=== PATIENT | male | born 1940 | race Caucasian/White ===

== ENCOUNTER → 2017-04-16 | Day surgery (SDC) | payer OTHER ==
[2017-03-20 11:50] VITALS: Ht 182.9 cm; Wt 72.7 kg
[~2017-04-16] VITALS: Ht 182.9 cm; Wt 72.7 kg
[~2017-04-16] MED LIST: 500ML BSS 0.3ML EPI 1:1000PF IRRIG ONE; ACET-1311 PO; ACETAMINOPHEN 325 MG TAB PO PRN; AMVISC PLUS 0.8ML SYRINGE INT OCU ONE; ASPI81TA25 PO; ATROPINE SULFATE 0.1 MG/ML 5ML SYR IV PRN; BRIMONIDINE TART 0.2% OP SOLN PER DROP CHARGE ONE; BSS FLUSH ONE; CLXOPS3; ENDOCOAT 0.85ML SYRINGE INT OCU ONE; EpHEDrine SULFATE INJ 50 MG/ML AMP IV PRN; EpINEphrine INJ 1MG/ML AMP 1 MG/ML AMP ONE; FLV400 PO; KETO0.5S22 OPL; LACTATED RINGER'S 1000ML 500 ML IV SCH; LECI1CAP6 PO; LECITHIN PO; LIDOCAINE 4% OP SOLN DROP CHARGE ONE; LIDOCAINE 4% OP SOLN DROP CHARGE OPR SCH; LIDOCAINE HCL 1% MPF 2 ML VIAL ONE; MAGN400T6 PO; MIDAZOLAM HCL 1 MG/ML 2ML VIAL ONE; MOXIFLOXACIN OPH SOLN PER DROP CHARGE ONE; MULT-188 PO; OMEG10007 PO; POVIDONE-IODINE OP SOLN 30 ML BTL ONE; PRED1SUS3 OPL; PROPARACAINE 0.5% OP SOLN PER DROP CHARGE OPR SCH; PRVC20 PO; TOBRAMYCIN/DEXAMETHASONE OPH OINT PER APPLN CHARGE ONE; ciprofloxacin
--- NOTE | 2017-04-16 10:06 | History & Physical Bridge - [place] ---
H&P Re-Evaluation Bridge Note: I have examined the patient, reviewed the History & Physical and in the interval since the performance of the History & Physical I have noted the following changes of clinical significance: No changes noted
[2017-04-16] MEDS: PHENYLEPHRINE HCL 2.5% OP SOLN PER DROP CHARGE OPR SCH ×2 (10:17→10:24)
[2017-04-16] MEDS: TROPICAMIDE 1% OP SOLN PER DROP CHARGE OPR SCH ×2 (10:18→10:25)
[2017-04-16] MEDS: CYCLOPENTOLATE HCL 1% OP SOLN PER DROP CHARGE OPR SCH ×2 (10:19→10:26)
[2017-04-16] MEDS: KETOROLAC 0.5% OP SOLN PER DROP CHARGE OPR SCH ×2 (10:21→10:27)
[2017-04-16] MEDS: MOXIFLOXACIN OPH SOLN PER DROP CHARGE OPR SCH ×2 (10:22→10:28)
[2017-04-16 11:19] VITALS: TEMP 36.4
--- NOTE | 2017-04-16 11:19 | Discharge Instructions-SurgCtr ---
Discharge Instructions Date of Service Apr 16, 2017. Visit Reason for Visit: Cataract Right Eye Discharge Discharge Diagnosis / Problem: cataract right eye Discharge Goals Goal(s): Improve function Activity Recommendations Activity Limitations: per Instructions/Follow-up section Lifting Limitations: no more than 5 pounds Anesthesia . Post Anesthesia Instructions: If you have had General Anesthesia or IV Sedation: * Do not drive today. * Resume driving when surgeon permits. * Do not make important decisions or sign legal documents today. * Call surgeon for: 1. Temperature elevations greater than 101 degrees F. 2. Uncontrollable pain. 3. Excessive bleeding. 4. Persistent nausea and vomiting. 5. Medication intolerance (nausea, vomiting or rash). * For nausea and vomiting use only clear liquids such as: tea, soda, bouillon until nausea subsides, then gradually increase diet as tolerated. * If you have any concerns or questions, call your surgeon's office. If physician is unavailable and it is an emergency, call 911 or go to the nearest emergency room. . Instructions / Follow-Up Instructions / Follow-Up ACTIVITY RECOMMENDATIONS: * Light activities * You may walk outside, read, watch television. * Mild irritation and blurred vision are common for the first few days, redness around the white part of the eye is common. MEDICATIONS: Resume previous medications unless instructed otherwise by your surgeon. Eye drops (today and tomorrow): Cipro - one drop in operative eye every 2 hours while awake Prednisolone 1% - one drop in operative eye every 2 hours while awake Bromfenac - one drop in operative eye once daily SPECIAL CARE INSTRUCTIONS: * If any problems or concerns, please call Dr. Hill's office at . * Keep plastic shield taped over eye to sleep at night. * Keep plastic shield taped over eye except to administer eye drops. * Keep plastic shield on until office visit the following day. FOLLOW UP VISIT: Follow-up with Dr. Hill in the [place] office as scheduled. If not already scheduled, please call the office at . Diet Recommendations Home Diet: resume previous diet Procedures Procedures Performed: Right Cataract Phacoemulsification With Intraocular Lens Implant Pending Studies Studies pending at discharge: no Medical Emergencies . Who to Call and When: Medical Emergencies: If at any time you feel your situation is an emergency, please call 911 immediately. . Non-Emergent Contact Non-Emergency issues call your: Rougher Machine Operator . . "Provider Documentation" section prepared by Corey Hill. .
--- NOTE | 2017-04-16 11:21 | [facility] Operative Report ---
Operative Report Operative Date Apr 16, 2017. Pre-Operative Diagnosis Right Eye Cataract Post-Operative Diagnosis Same Procedure(s) Performed Right Cataract Phacoemulsification With Intraocular Lens Implant Surgeon Dr Hill Supervisor Brine Surgeon(s) None Estimated Blood Loss 0ml Findings cataract right eye Fluids (cc crystalloids) see anesthesia record Specimens None Drains none Anesthesia local with sedation Complication(s) None Disposition Recovery Room / PACU Implants mx60 22.5 Indications decreased vision right eye Description of Procedure After informed consent was obtained in the holding area the patient was wheeled back to the operating room where cardiac monitoring leads and oxygen by nasal cannula was administered by Anesthesia. Gentle IV sedation was given, and the patient's right eye was prepped and draped in usual sterile fashion. A wire lid speculum was placed into the right eye and the operating microscope was swung into position. Using 0.12 forceps and a Supersharp blade a paracentesis port was made 2 o'clock hours away from the 9 o'clock position of the patient's right eye. 1% non-preserved Lidocaine was then injected into the anterior chamber for anesthesia. A 2.0 mm keratotome blade was then used to make a shelved clear corneal incision at the 9 o'clock position of the right eye. Amvisc was injected into the anterior chamber and a cystotome and Utrata forceps were used to perform a curvilinear capsulorrhexis. BSS on a hydrodissection cannula was used to hydrodissect the lens nucleus away from the capsular bag. The phacoemulsification handpiece was then used in a stop and chop fashion to remove the lens nucleus. The irrigation and aspiration handpiece was then used to remove the residual cortical material. Amvisc was injected into the capsular bag and anterior chamber and a Bausch & Lomb MX60 22.5 Diopter intraocular lens was injected into the capsular bag. Irrigation and aspiration handpiece was used to remove the residual viscoelastic material. The wounds were hydrated and noted to be watertight. The wire lid speculum was removed from the eye. Vigamox, Brimonidine, and TobraDex ointment were placed on the eye and it was shielded. It should be noted that EndoCoat was used extensively during the case to protect the cornea endothelium. DISPOSITION: The patient tolerated the procedure well and was wheeled to the post anesthesia care unit in stable condition. I attest to the content of the Intraoperative Record and any orders documented therein. Any exceptions are noted below. I attest to the content of the Intraoperative Record and any orders documented therein. Any exceptions are noted below.
[2017-04-16 11:32] VITALS: BP 132/73; PULSE 66; O2SAT 95
--- NOTE | 2017-04-16 11:52 | Anesthesia Progress Nt - [facility] ---
Anesthesia Post Op Note Date & Time Apr 16, 2017 at 11:52 Vital Signs Pain Intensity: 0 Vital Signs Past 12 Hours Date Time Temp Pulse Resp B/P (MAP) Pulse Ox O2 Delivery O2 Flow Rate FiO2 04/16/17 11:32 66 20 132/73 (92) 95 Room Air 04/16/17 11:19 36.4 78 16 139/75 (96) 96 Room Air 04/16/17 10:06 36.4 64 16 126/74 (91) 99 Room Air Notes Mental Status: alert / awake / arousable, participated in evaluation Pt Amnestic to Procedure: Yes Nausea / Vomiting: adequately controlled Pain: adequately controlled Airway Patency, RR, SpO2: stable & adequate BP & HR: stable & adequate Hydration State: stable & adequate Anesthetic Complications: no major complications apparent
== END | disposition home or self-care (01) ==
LOC: X.SURG 09:42
PROVIDERS: ATTEND Ophthalmology
DX: H25.11 Age-related nuclear cataract, right eye (principal)

== ENCOUNTER → 2017-04-30 | Day surgery (SDC) | payer OTHER ==
[2017-04-25 07:43] VITALS: Ht 182.9 cm; Wt 72.7 kg
[~2017-04-30] VITALS: Ht 182.9 cm; Wt 72.7 kg
[~2017-04-30] MED LIST changes: -LECITHIN PO; +LIDOCAINE 4% OP SOLN DROP CHARGE OPL SCH; -LIDOCAINE 4% OP SOLN DROP CHARGE OPR SCH; +PROPARACAINE 0.5% OP SOLN PER DROP CHARGE OPL SCH; -PROPARACAINE 0.5% OP SOLN PER DROP CHARGE OPR SCH; -ciprofloxacin
[2017-04-30] MEDS: PHENYLEPHRINE HCL 2.5% OP SOLN PER DROP CHARGE OPL SCH ×2 (08:38→08:43)
[2017-04-30] MEDS: TROPICAMIDE 1% OP SOLN PER DROP CHARGE OPL SCH ×2 (08:39→08:44)
[2017-04-30] MEDS: CYCLOPENTOLATE HCL 1% OP SOLN PER DROP CHARGE OPL SCH ×2 (08:40→08:45)
[2017-04-30] MEDS: KETOROLAC 0.5% OP SOLN PER DROP CHARGE OPL SCH ×2 (08:41→08:46)
[2017-04-30] MEDS: MOXIFLOXACIN OPH SOLN PER DROP CHARGE OPL SCH ×2 (08:42→08:52)
[2017-04-30 10:10] VITALS: TEMP 36
--- NOTE | 2017-04-30 10:10 | Discharge Instructions-SurgCtr ---
Discharge Instructions Date of Service Apr 30, 2017. Visit Reason for Visit: Cataract Left Eye Discharge Discharge Diagnosis / Problem: cataract left eye Discharge Goals Goal(s): Improve function Activity Recommendations Activity Limitations: per Instructions/Follow-up section Lifting Limitations: no more than 5 pounds Anesthesia . Post Anesthesia Instructions: If you have had General Anesthesia or IV Sedation: * Do not drive today. * Resume driving when surgeon permits. * Do not make important decisions or sign legal documents today. * Call surgeon for: 1. Temperature elevations greater than 101 degrees F. 2. Uncontrollable pain. 3. Excessive bleeding. 4. Persistent nausea and vomiting. 5. Medication intolerance (nausea, vomiting or rash). * For nausea and vomiting use only clear liquids such as: tea, soda, bouillon until nausea subsides, then gradually increase diet as tolerated. * If you have any concerns or questions, call your surgeon's office. If physician is unavailable and it is an emergency, call 911 or go to the nearest emergency room. . Instructions / Follow-Up Instructions / Follow-Up ACTIVITY RECOMMENDATIONS: * Light activities * You may walk outside, read, watch television. * Mild irritation and blurred vision are common for the first few days, redness around the white part of the eye is common. MEDICATIONS: Resume previous medications unless instructed otherwise by your surgeon. Eye drops (today and tomorrow): Cipro - one drop in operative eye every 2 hours while awake Prednisolone 1% - one drop in operative eye every 2 hours while awake Ketorolac - one drop in operative eye every 2 hours while awake SPECIAL CARE INSTRUCTIONS: * If any problems or concerns, please call Dr. Hill's office at . * Keep plastic shield taped over eye to sleep at night. * Keep plastic shield taped over eye except to administer eye drops. * Keep plastic shield on until office visit the following day. FOLLOW UP VISIT: Follow-up with Dr. Hill in the [place] office as scheduled. If not already scheduled, please call the office at . Diet Recommendations Home Diet: resume previous diet Procedures Procedures Performed: Left Cataract Phacoemulsification With Intraocular Lens Implant Pending Studies Studies pending at discharge: no Medical Emergencies . Who to Call and When: Medical Emergencies: If at any time you feel your situation is an emergency, please call 911 immediately. . Non-Emergent Contact Non-Emergency issues call your: Nnp . . "Provider Documentation" section prepared by Corey Hill. .
--- NOTE | 2017-04-30 10:12 | [facility] Operative Report ---
Operative Report Operative Date Apr 30, 2017. Pre-Operative Diagnosis Left Eye Cataract Post-Operative Diagnosis Same Procedure(s) Performed Left Cataract Phacoemulsification With Intraocular Lens Implant Surgeon Dr. Meng Hill Puncher Surgeon(s) None Estimated Blood Loss 0 Findings cataract left eye Fluids (cc crystalloids) see anesthesia record Specimens None Drains none Anesthesia local with sedation Complication(s) None Disposition Recovery Room / PACU Implants mx60 22.5 Indications decreased vision left eye Description of Procedure After informed consent was obtained in the holding area the patient was wheeled back to the operating room where cardiac monitoring leads and oxygen by nasal cannula was administered by Anesthesia. Gentle IV sedation was given, and the patient's left eye was prepped and draped in usual sterile fashion. A wire lid speculum was placed into the left eye and the operating microscope was swung into position. Using 0.12 forceps and a Supersharp blade a paracentesis port was made 2 o'clock hours away from the 3 o'clock position of the patient's left eye. 1% non-preserved Lidocaine was then injected into the anterior chamber for anesthesia. A 2.0 mm keratotome blade was then used to make a shelved clear corneal incision at the 3 o'clock position of the left eye. Amvisc was injected into the anterior chamber and a cystotome and Utrata forceps were used to perform a curvilinear capsulorrhexis. BSS on a hydrodissection cannula was used to hydrodissect the lens nucleus away from the capsular bag. The phacoemulsification handpiece was then used in a stop and chop fashion to remove the lens nucleus. The irrigation and aspiration handpiece was then used to remove the residual cortical material. Amvisc was injected into the capsular bag and anterior chamber and a Bausch & Lomb MX60 22.5 Diopter intraocular lens was injected into the capsular bag. Irrigation and aspiration handpiece was used to remove the residual viscoelastic material. The wounds were hydrated and noted to be watertight. The wire lid speculum was removed from the eye. Vigamox, Brimonidine, and TobraDex ointment were placed on the eye and it was shielded. It should be noted that EndoCoat was used extensively during the case to protect the cornea endothelium. DISPOSITION: The patient tolerated the procedure well and was wheeled to the post anesthesia care unit in stable condition. I attest to the content of the Intraoperative Record and any orders documented therein. Any exceptions are noted below. I attest to the content of the Intraoperative Record and any orders documented therein. Any exceptions are noted below.
[2017-04-30 10:34] VITALS: BP 122/73; PULSE 59; O2SAT 97
--- NOTE | 2017-04-30 10:39 | Anesthesia Progress Nt - [facility] ---
Anesthesia Post Op Note Date & Time Apr 30, 2017 at 10:39 Vital Signs Pain Intensity: 0 Vital Signs Past 12 Hours Date Time Temp Pulse Resp B/P (MAP) Pulse Ox O2 Delivery O2 Flow Rate FiO2 04/30/17 10:34 59 16 122/73 (89) 97 Room Air 04/30/17 10:10 36.0 61 16 145/90 (108) 100 Room Air 04/30/17 08:30 36.9 55 16 103/63 (76) 97 Room Air Notes Mental Status: alert / awake / arousable, participated in evaluation Pt Amnestic to Procedure: Yes Nausea / Vomiting: adequately controlled Pain: adequately controlled Airway Patency, RR, SpO2: stable & adequate BP & HR: stable & adequate Hydration State: stable & adequate Anesthetic Complications: no major complications apparent
== END | disposition home or self-care (01) ==
LOC: X.SURG 08:13
PROVIDERS: ATTEND Ophthalmology
DX: H25.12 Age-related nuclear cataract, left eye (principal); H35.3130 Nonexudative age-related macular degeneration, bilateral, stage unspecified; I25.10 Atherosclerotic heart disease of native coronary artery without angina pectoris; Z85.828 Personal history of other malignant neoplasm of skin; Z98.61 Coronary angioplasty status

== ENCOUNTER 2022-08-02 20:14 | Inpatient (IN) ==
[2022-08-02] MEDS ORDERED: ASPIRIN CHEW 324 MG PO STA (20:34)
--- NOTE | 2022-08-02 20:34 | Emergency Department Note ---
Impression & Plan Unstable angina, Chest pain ED Provider Note NAME: MARY BENITEZ AGE: 82 SEX: M : 1940 ARRIVES VIA: Walk-In INFORMANT: Patient, ED PROVIDER(S): Denis Dwyer MD Chief Complaint: Chest pain HPI: Patient presents due to concern for chest pain that developed at rest approximately 1 to 2 hours ago. The patient is scheduled for a heart catheterization with Dr. Basurto tomorrow but did come in at the behest of Dr. Villalpando as well as the impending weather. Patient denies any active chest pain. He did take 2 nitro at the time that this occurred and stated it was left-sided did radiate to his arm an achy pressure about a 3 out of 10 in severity. No falls or trauma. The patient denies any numbness tingling or focal weakness. No leg swelling or calf pain. Patient denies any alcohol or tobacco use. No upper respiratory symptoms cough or fever. ROS: See HPI for pertinent positives and negatives. A total of 10 systems were reviewed and otherwise negative. Past medical history: See below Surgical history: See below Social history: See below Physical Exam: GENERAL: NAD, wearing a mask, non-toxic. Wearing glasses, hearing aids in place EYE EXAM: Normal conjunctiva. PERRL, no anisocoria and EOM's grossly intact w/o pain. NECK: Supple, no nuchal rigidity, no adenopathy, non-tender. No signs of meningismus. FROM of the neck with good chin to chest and neck extension. No stridor. LUNGS: Clear to auscultation. Normal chest wall mechanics. HEART: NSR, no MRG. ABDOMEN: Abdomen soft, non-tender, normo-active bowel sounds, no masses, no rebound or guarding. BACK: No CVA TTP. SKIN: No rashes and no bruising. UPPER EXTREMITIES: Upper extremities are grossly normal. LOWER EXTREMITIES: Grossly normal, no edema. Negative Homans' sign bilaterally. NEURO EXAM: A&O x3, cranial nerves II-XII grossly intact, normal speech, moves all 4 extremities. Differential diagnoses: Cardiac ischemia, aortic dissection, pulmonary embolism, pneumothorax, pneumonia, pericarditis, myocarditis, esophageal rupture, GERD, cholecystitis, pancreatitis, musculoskeletal, as well as other pathologies. Course: Patient was seen and evaluated the bedside. Full history physical exam was performed. EKG interpreted by me Sinus with sinus arrhythmia, rate of 71, wide QRS, right bundle branch block pattern, no ST elevations. Potentially slight depressions in the lateral leads. No prior EKGs for comparison Imaging Studies: See Below Cardiac monitoring: An order was placed for continuous cardiac monitoring. The monitor shows a rate of 79 with sinus rhythm. MDM: Patient presents due to concern for chest pain. No active chest pain at the bedside. EKG does not show any obvious ST elevations. Potentially very mild depressions in the lateral leads. Patient was ordered the rest of 3 additional aspirin as the patient did take a baby aspirin earlier today. Blood work pending and heparin to be ordered once coags and platelet oxygen and CBC results. I did already speak with Dr. Basurto who states that he did send the patient in to be admitted. He is agreeable to heparin provided no other contraindications. History and physical exam not consistent with aneurysm or dissection. No signs of DVT on exam. Believe PE to be less likely. The patient's blood work showed a normal white count H&H and platelet count with normal kidney function. The patient's BSG slightly elevated at 131 non-DKA and this is not a fasting glucose. Troponin is not elevated at 7.8. COVID- negative. Chest x-ray negative I did speak the on-call hospitalist Dr. Torres and the patient was admitted to the medicine service for unstable angina. Patient has had no further chest pain while in the department. It was relayed to the patient that if he does develop any chest pain to notify staff. Patient understood. Do not believe the patient requires [employer] at this time as the patient has no active chest pain negative troponin and no ST elevations. Critical Care: I have personally spent 35 minutes of critical care time in direct management of this patient. This includes bedside care, interpretation of diagnostic studies, and testing, discussion with consultants, patient, and family members, and other require inpatient management activities. This 35 minutes is in excess of all separately billable procedures. Past Med/Surg History Social History Smoking Status: Never smoker Hx Alcohol Use: No Hx Substance Use: No Preferred Language: Arabic Communication Ability: Effective Safety Advisor Required: No Beliefs That Will Affect Care: None Current Living Situation: Spouse Other Information That Helps Us Care for You: No Feels Safe at Home: Yes Safety Concerns: Feels Safe At This Time Assistive Devices: Glasses and Hearing Aid - Bilateral Allergies Allergies Allergy/AdvReac Type Severity Reaction Status Date / Time No Known Allergies Allergy Verified 08/02/22 20:47 Home Meds Home Medications Medication Instructions Recorded Confirmed L.acidoph-L.rhamn-B.bifidum-B.long 1 tab PO TIDM 08/02/22 08/02/22 12.9 mg (2 billion cell) tablet, DR (Probiotic Acidophilus Biobeads) aspirin 81 mg tablet,delayed 81 mg PO DAILY 08/02/22 08/02/22 release cholecalciferol (vitamin D3) 125 250 mcg PO DAILY 08/02/22 08/02/22 mcg (5,000 unit) tablet (Vitamin D3) finasteride 5 mg tablet 5 mg PO QAM 08/02/22 08/02/22 folic acid 400 mcg tablet 0.4 mg PO DAILY 08/02/22 08/02/22 lecithin 1,200 mg capsule 1,200 mg PO DAILY 08/02/22 08/02/22 magnesium oxide 400 mg PO DAILY 08/02/22 08/02/22 nitroglycerin 0.4 mg sublingual 0.4 mg sublingual DIRECTED PRN 08/02/22 08/02/22 tablet (Nitrostat) Chest Pain omega 9-wso-zke-fish oil 1,200 mg 1 cap PO DAILY 08/02/22 08/02/22 (144 mg-216 mg) capsule (Fish Oil) pravastatin 20 mg tablet 20 mg PO HS 08/02/22 08/02/22 tamsulosin 0.4 mg capsule 0.4 mg PO HS 08/02/22 08/02/22 vit C 250 mg-vit E 90 mg-zinc 40 1 tab PO DAILY 08/02/22 08/02/22 mg-copper 1 wk-hgrpvr-lwfwgo capsule (PreserVision AREDS-2) Results & Data (ED) Vital Signs Vital Signs - 24 hr 08/02/22 20:16 08/02/22 20:15 08/02/22 20:15 Temperature 36.8 C Temperature Source Temporal Artery Scan Pulse Rate 100 H Pulse Rate [Apical] 78 Pulse Rhythm Regular Pulse Strength Normal Respiratory Rate 18 18 Respiratory Effort / Characteristics Non-Labored Spontaneous Respiratory Depth Normal Respiratory Pattern Regular Blood Pressure 133/70 Blood Pressure [Left Arm] 152/84 H Blood Pressure Mean 91 Blood Pressure Mean [Left Arm] 106 Blood Pressure Position Sitting Pulse Oximetry 98 98 95 Oxygen Delivery Method Room Air Room Air Room Air Sepsis Recent Fever Within 48 Hours No Sepsis New/Unexplained Change in Mental Status N/A Sepsis Action Taken by Nursing No Action Required 08/02/22 20:24 08/02/22 22:15 Temperature Temperature Source Pulse Rate 73 Pulse Rate [Apical] 74 Pulse Rhythm Pulse Strength Respiratory Rate 18 14 Respiratory Effort / Characteristics Non-Labored Respiratory Depth Normal Respiratory Pattern Blood Pressure Blood Pressure [Left Arm] 122/68 Blood Pressure Mean Blood Pressure Mean [Left Arm] 86 Blood Pressure Position Pulse Oximetry 95 97 Oxygen Delivery Method Room Air Room Air Sepsis Recent Fever Within 48 Hours Sepsis New/Unexplained Change in Mental Status Sepsis Action Taken by Nursing Laboratory Data Result diagrams: 08/02/22 20:30 08/02/22 20:30 Lab Results 08/02/22 08/02/22 08/02/22 Range/Units 20:30 20:30 20:30 WBC 6.00 (4.8-10.8) K/ul RBC 5.04 (4.63-6.08) M/uL Hgb 15.3 (14.0-18.0) g/dl Hct 45.7 (40.1-51.0) % MCV 90.7 (80.0-100.0) fL MCH 30.4 (25.0-34.0) pg MCHC 33.5 (32.0-36.0) g/dL RDW Std Deviation 41.5 (36.4-46.3) fL RDW Coeff of Marilynn 12.5 (11.5-14.5) % Plt Count 197 (130-400) K/uL MPV 10.3 (9.4-12.4) fL Immature Gran % (Auto) 0.2 % Neut % (Auto) 59.7 % Lymph % (Auto) 26.8 % Bond % (Auto) 7.8 % Eos % (Auto) 4.8 % Baso % (Auto) 0.7 % Neut # (Auto) 3.58 (1.4-6.5) K/uL Lymph # (Auto) 1.61 (1.2-3.4) K/uL Bond # (Auto) 0.47 (0.24-0.82) K/uL Eos # (Auto) 0.29 (0-0.50) K/uL Baso # (Auto) 0.04 (0-0.2) K/uL Immature Gran # (Auto) 0.01 (0.00-0.02) K/uL PT 10.6 (9.0-12.0) Seconds INR 1.0 (0.9-1.1) APTT 26.3 (21.0-31.0) Seconds PTT Ratio 1.0 Sodium 139 (136-145) mmol/L Potassium 3.8 (3.5-5.1) mmol/L Chloride 102 (98-107) mmol/L Carbon Dioxide 34 H (21-32) mmol/L Anion Gap 3 (3-11) BUN 18 (6-23) mg/dl Creatinine 1.11 (0.6-1.4) mg/dl Est Cr Clr Drug Dosing 53.1 ml/min Est GFR ( Amer) 70.8 ml/min Est GFR (Non-Af Amer) 61.1 ml/min BUN/Creatinine Ratio 16.2 (10-20) Glucose 131 H (70-99(Fasting)) mg/dl Calcium 9.2 (8.5-10.1) mg/dl Total Bilirubin 0.6 (0.2-1.0) mg/dl AST 21 (13-39) U/L ALT 18 (7-52) U/L Alkaline Phosphatase 95 (34-104) U/L Troponin I High Sens 7.8 (0-20) pg/ml Total Protein 6.9 (6.0-8.3) gm/dl Albumin 4.2 (3.4-5.0) gm/dl Globulin 2.7 (2.5-4.0) gm/dl Albumin/Globulin Ratio 1.6 (0.9-2) Lipase 32 (11-82) U/L Administered Medications Heparin Sodium/Dextrose (Heparin Sodium/Dextrose) 25,000 units in 500 mls @ 18 mls/hr IV .Q24H [facility]; Protocol Stop: 09/01/22 21:29 Last Admin: 08/02/22 23:03 Dose: 900 units/hr, 18 mls/hr Documented By: RAYMOND Co-signed By: TRISH Discontinued Medications Aspirin (Aspirin Chew 324 Mg) 243 mg PO NOW STA Stop: 08/02/22 20:35 Last Admin: 08/02/22 20:55 Dose: 243 mg Documented By: TNB Heparin Sodium/Dextrose (Heparin Iv Adult Wt-Based Low-Dose *No* Bolus Protocol) 1 each IV ONE ONE; Protocol Stop: 08/02/22 21:22 Last Admin: 08/02/22 23:04 Dose: Not Given Documented By: TNB Imaging Data Radiologist's Impression: Chest X-Ray 08/02/22 20:24 XR chest 1V portable HISTORY: Atypical chest pain. COMPARISON: None. FINDINGS: The lungs are clear. Cardiac silhouette is normal in size. No pleural effusions. No pneumothorax. IMPRESSION: No acute process. ACT 112: Negative or not required by law. Electronically signed by: Norman Floyd M.D. 08/02/2022 9:02 PM Discharge Plan Visit Data Chief Complaint: Chest Pain Stated Complaint: CATHERIZATION TOMORROW,CHEST PAIN,TOOK NITRO ED Provider: Denis Dwyer Discharge Problem: Unstable angina, Chest pain Patient Disposition: Admitted As Inpatient Discharge Instructions Interventions: ED Discharge Assessment Last Done: 08/02/22 23:35
[2022-08-02 20:47] LABS: Basophils # (auto) 0.04 K/uL (0-0.2); Basophils % (auto) 0.7 %; Eosinophils # (auto) 0.29 K/uL (0-0.50); Eosinophils % (auto) 4.8 %; Hematocrit (blood only) 45.7 % (40.1-51.0); Hemoglobin 15.3 g/dl (14.0-18.0); Immature Granulocytes # (auto) 0.01 K/uL (0.00-0.02); Immature Granulocytes % (auto) 0.2 %; Lymphocytes # (auto) 1.61 K/uL (1.2-3.4); Lymphocytes % (auto) 26.8 %; Mean Corpuscular Hemoglobin 30.4 pg (25.0-34.0); Mean Corpuscular Hgb Conc 33.5 g/dL (32.0-36.0); Mean Corpuscular Volume 90.7 fL (80.0-100.0); Mean Platelet Volume 10.3 fL (9.4-12.4); Monocytes # (auto) 0.47 K/uL (0.24-0.82); Monocytes % (auto) 7.8 %; Neutrophils # (auto) 3.58 K/uL (1.4-6.5); Neutrophils % (auto) 59.7 %; Platelet Count 197 K/uL (130-400); RDW Coefficient of Variation 12.5 % (11.5-14.5); RDW Standard Deviation 41.5 fL (36.4-46.3); Red Blood Count 5.04 M/uL (4.63-6.08)
--- NOTE | 2022-08-02 21:03 | XRay Report ---
XR chest 1V portable HISTORY: Atypical chest pain. COMPARISON: None. FINDINGS: The lungs are clear. Cardiac silhouette is normal in size. No pleural effusions. No pneumot horax. IMPRESSION: No acute process. ACT 112: Negative or not required by law. Electronically signed by: Norman Floyd M.D. 08/02/2022 9:02 PM
[2022-08-02 21:14] LABS: Partial Thromboplastin Time 26.3 Seconds (21.0-31.0); Prothrombin Time 10.6 Seconds (9.0-12.0)
[2022-08-02 21:17] LABS: Albumin Globulin Ratio 1.6 (0.9-2); Albumin Level 4.2 gm/dl (3.4-5.0); BUN Creatinine Ratio 16.2 (10-20); Bilirubin,Total 0.6 mg/dl (0.2-1.0); Calcium 9.2 mg/dl (8.5-10.1); Creatinine Clr Calc Pharmacy 53.1 ml/min; Est GFR (African American) 70.8 ml/min; Est GFR (Non-African American) 61.1 ml/min; Globulin 2.7 gm/dl (2.5-4.0); Potassium 3.8 mmol/L (3.5-5.1); Total Protein 6.9 gm/dl (6.0-8.3)
[2022-08-02 21:18] LABS: Troponin I High Sensitivity 7.8 pg/ml (0-20)
[2022-08-02] MEDS ORDERED: Heparin IV Adult Wt-Based Low-Dose *NO* Bolus Protocol IV ONE (21:21)
[2022-08-02] MEDS ORDERED: HEPARIN SODIUM/DEXTROSE 25,000 UNITS/500 ML BAG IV SCH (21:30)
[2022-08-02] MEDS ORDERED: NITROGLYCERIN SL 0.4 MG/TAB TAB SL PRN (23:55)
[2022-08-02] MEDS ORDERED: ACETAMINOPHEN 325 MG TAB PO PRN (23:55)
--- NOTE | 2022-08-03 01:16 | History and Physical Report ---
DATE OF ADMISSION: 08/02/2022 CHIEF COMPLAINT: Chest pain. HISTORY OF PRESENT ILLNESS: This is an 82-year-old male with past medical history significant for hyperlipidemia, history of CAD, chronic kidney disease stage III, history of degenerative disc disease, hearing loss, presents with chest pain. The patient says he is having chest pain with minimal exertion going on for the past six weeks. He has stress test done on 07/26/2022, which was positive and there is plan for elective cardiac catheterization tomorrow. The patient says today, in the evening he was sitting when he noticed chest pain in upper chest , mild to moderate in nature, going to his left arm, he took nitroglycerin, which really helped the pain. For this reason he came here. Currently, resting comfortably, hemodynamically stable. He also given aspirin. Denies any headache. No blurred visions, no earache, no runny nose, no sore throat, no cough, no difficulty swallowing. Appetite is okay. No shortness of breath, no sweating, no nausea, no abdominal pain. Normal bowel and bladder movements. No hematuria, no blood in stools or black stools. No swelling in the legs. ALLERGIES: No known drug allergies. PAST MEDICAL HISTORY: As mentioned above. PAST SURGICAL HISTORY: Ultrasound-guided needle biopsy of prostate. MEDICATIONS: The patient is on aspirin 81 mg p.o. daily, vitamin D 250 mcg p.o. daily, finasteride 5 mg p.o. a.m., folic acid 0.4 mg p.o. daily, probiotic 1 tablet p.o. daily, magnesium oxide 400 mg p.o. daily, Nitrostat 0.4 mg sublingual p.r.n., fish oil 1 capsule p.o. daily, pravastatin 20 mg p.o. at bedtime, Flomax 0.4 mg p.o. at bedtime, PreserVision AREDS 1 tablet p.o. daily. FAMILY HISTORY: Significant for paternal grandfather had bone cancer, maternal grandmother had abdominal tumor. Maternal grandfather had heart disorder. Father had history of CAD, valve repair, at age of 94. Mother had CAbG in 80's and has carotid artery disease.Daughter has skin cancer. SOCIAL HISTORY: . No smoking, no alcohol, no drug use. REVIEW OF SYSTEMS: As per HPI. Rest of review of systems is negative. PHYSICAL EXAMINATION: GENERAL: The patient is of moderate build, not in acute distress. VITAL SIGNS: Temperature 36.8, pulse of 73, respiratory rate 18, blood pressure 133/70, oxygen 95% on room air. HEENT: Pupils equal, round and reactive to light. Oral mucosa moist. NECK: No JVD, no neck masses. CARDIOVASCULAR: S1 and S2 heard. Regular rate and rhythm. No murmur, no gallop. RESPIRATORY SYSTEM: Normal AP diameter. No accessory muscle use. No wheezing, no crackles. ABDOMEN: Soft, bowel sounds present, nontender, no distention. CENTRAL NERVOUS SYSTEM: Cranial nerves II-XII grossly intact, nonfocal. EXTREMITIES: No edema, no erythema. LABORATORY DATA: WBC 6, hemoglobin 15.3, hematocrit 45.7, platelets 197. PT 10.6, INR 1, APTT 26.3. Sodium 139, potassium 3.8, chloride 102, bicarbonate 34, BUN 18, creatinine 1.1, serum glucose 131, calcium 9.2, total bilirubin 0.6, AST 21, ALT 18, alkaline phosphatase 94. Troponin I high sensitivity 7.8, lipase 32. SARS-CoV-2 rapid test negative. IMAGING DATA: Chest x-ray, no acute process. EKG: Sinus rhythm with marked sinus arrhythmia at a rate of 71, right bundle- branch block, no acute ST changes seen. ASSESSMENT AND PLAN: This is an 82-year-old male who presents with chest pain. 1. Chest pain, unstable angina. The patient is having abnormal stress test recently and today he had chest pain while he was resting. Initial troponin is unremarkable. ER talked to cardiology and started him on IV heparin. Plan for cardiac catheterization in a.m., n.p.o. Continue his home aspirin. We will place him on Lipitor. Also started on Po Lopressor as BP somewhat high. Continue monitoring. 2. History of benign prostatic hyperplasia. The patient is on Flomax and finasteride. 3. Hyperlipidemia: On statin. 4. Chronic kidney disease, stage III. Current creatinine of 1.1. Follow the labs. 5. Deep venous thrombosis prophylaxis: On IV heparin. DISPOSITION: Closely monitor in tele floor. Level 1 full code. Expect to discharge home and follow with family doctor. Job ID: [id number] [facility]
[2022-08-03] MEDS ORDERED: METOPROLOL TARTRATE 1 MG/ML VIAL IV STA (03:06)
[2022-08-03] MEDS: METOPROLOL TARTRATE 25 MG TAB PO SCH ×3 (04:39→20:11)
[2022-08-03 06:29] LABS: Chol HDL Ratio 2.5 (0-5)
[2022-08-03 06:39] LABS: Partial Thromboplastin Time 56.2 Seconds (21.0-31.0)
[2022-08-03 06:40] LABS: Troponin I High Sensitivity 13.6 pg/ml (0-20)
[2022-08-03] MEDS ORDERED: MIDAZOLAM HCL 1 MG/ML 2ML VIAL ONE (07:52)
[2022-08-03] MEDS ORDERED: niCARdipine HCL INJ 2.5 MG/ML 10 ML AMP ONE (07:52)
[2022-08-03] MEDS ORDERED: fentaNYL citrate 100 MCG/2 ML VIAL ONE (07:52)
[2022-08-03] MEDS ORDERED: HEPARIN (PORCINE) 1000 UNIT/ML 10 ML (CATH LAB USE ONLY) ONE (07:52)
[2022-08-03] MEDS ORDERED: NITROGLYCERIN/D5W 100MCG/ML 20ML SYR ONE (07:52)
--- NOTE | 2022-08-03 08:12 | Cardiology Consultation ---
Date of Consultation August 03, 2022 Assessment & Plan (1) CAD (coronary artery disease): (2) Abnormal stress echocardiogram: (3) Dyslipidemia: (4) Vasovagal syncope: (5) Unstable angina: History of Present Illness Reason for Consultation: Unstable angina Requesting Physician: [place] hospitalist group Attending Physician: Ike Hernandes MD History of Present Illness Past medical history as per most recent outpatient cardiology visit: 1. Chronic CAD (history of LAD angioplasty without stenting in 1991) -intermittent chest tightness suggestive of stable angina class 2 2. Dyslipidemia goal LDL less than 70mg/dL - uncontrolled - history of intolerance to atorvastatin - tolerating pravastatin 3. Erectile dysfunction - vasculogenic 4. Vasovagal syncope - no recurrence 5. Asymptomatic borderline hypotension - borderline hypertensive today 6. Family history of hypertrophic cardiomyopathy (sister) Allergies Allergy/AdvReac Type Severity Reaction Status Date / Time No Known Allergies Allergy Verified 08/02/22 20:47 Home Medications Medication Instructions Recorded Confirmed Type L.acidoph-L.rhamn-B.bifidum-B.long 1 tab PO TIDM 08/02/22 08/02/22 History 12.9 mg (2 billion cell) tablet, (Probiotic Acidophilus Rochelle) aspirin 81 mg tablet,delayed 81 mg PO DAILY 08/02/22 08/02/22 History release cholecalciferol (vitamin D3) 125 250 mcg PO DAILY 08/02/22 08/02/22 History mcg (5,000 unit) tablet (Vitamin D3) finasteride 5 mg tablet 5 mg PO QAM 08/02/22 08/02/22 History folic acid 400 mcg tablet 0.4 mg PO DAILY 08/02/22 08/02/22 History lecithin 1,200 mg capsule 1,200 mg PO DAILY 08/02/22 08/02/22 History magnesium oxide 400 mg PO DAILY 08/02/22 08/02/22 History nitroglycerin 0.4 mg sublingual 0.4 mg sublingual DIRECTED PRN 08/02/22 08/02/22 History tablet (Nitrostat) Chest Pain omega 2-jcn-mqi-fish oil 1,200 mg 1 cap PO DAILY 08/02/22 08/02/22 History (144 mg-216 mg) capsule (Fish Oil) pravastatin 20 mg tablet 20 mg PO HS 08/02/22 08/02/22 History tamsulosin 0.4 mg capsule 0.4 mg PO HS 08/02/22 08/02/22 History vit C 250 mg-vit E 90 mg-zinc 40 1 tab PO DAILY 08/02/22 08/02/22 History mg-copper 1 uq-qwgrrc-dnbxjc capsule (PreserVision AREDS-2) Patient History Social History Smoking Status: Never smoker Hx Alcohol Use: No Hx Substance Use: No Preferred Language: New Zealander Communication Ability: Effective Trophy Assembler Required: No Beliefs That Will Affect Care: None Current Living Situation: Spouse Other Information That Helps Us Care for You: No Feels Safe at Home: Yes Safety Concerns: Feels Safe At This Time Assistive Devices: Glasses and Hearing Aid - Bilateral Results & Data ([facility]) Vital Signs (Past 12 Hours) Vital Signs Temp Pulse Pulse Resp BP BP BP 08/03/22 07:51 74 18 171/92 H 08/03/22 06:47 36.6 C 70 18 146/78 H 08/03/22 05:53 64 12 127/71 08/03/22 04:30 73 160/74 H 08/03/22 03:39 83 154/76 H 08/03/22 03:13 77 153/78 H 08/03/22 02:42 36.3 C L 77 18 153/78 H 08/03/22 00:23 74 08/02/22 23:45 36.7 C 70 20 182/84 H 08/02/22 23:55 36.7 C 79 16 158/84 H 08/02/22 22:15 74 14 122/68 08/02/22 20:24 73 18 08/02/22 20:15 78 18 152/84 H 08/02/22 20:15 08/02/22 20:16 36.8 C 100 H 18 133/70 Pulse Ox O2 Del Method 08/03/22 07:51 97 Room Air 08/03/22 06:47 97 Room Air 08/03/22 05:53 Room Air 08/03/22 04:30 08/03/22 03:39 08/03/22 03:13 08/03/22 02:42 96 Room Air 08/03/22 00:23 08/02/22 23:45 93 Room Air 08/02/22 23:55 93 Room Air 08/02/22 22:15 97 Room Air 08/02/22 20:24 95 Room Air 08/02/22 20:15 95 Room Air 08/02/22 20:15 98 Room Air 08/02/22 20:16 98 Room Air Diagnostic Findings Exercise stress echocardiogram report from 07/26/2022: Interpretation Summary Exercise 50 stress echocardiogram positive for inducible ischemia with hypokinesis of the mid to distal inferolateral wall (technically difficult study to interpret due to difficult acoustic windows from lung interference). Exercise stress ECG positive for inducible ischemia with 2-[address] depression noted in leads II, III, aVF, and V3-V6 Adequate cardiovascular stress test as patient obtained 95 percent of their age predicted maximal target heart rate. Patient exercised for 7 minutes of the Gabe protocol with a functional capacity of 7 Mets. Normal blood pressure and heart rate response to exercise. Patient denied chest discomfort reporting only fatigue at peak exercise. The abnormal findings were discussed with patient at the time of the examination. Ordering provider notified by [place] [facility]. Resting Echocardiogram The qualitative LV ejection fraction is 55-59% (normal). The right ventricular cavity size is normal. The right ventricular systolic function is qualitatively normal. No significant valvular disease.
--- NOTE | 2022-08-03 08:15 | Pre Anesthesia Assessment ---
Date of Service August 03, 2022 Pre Sedation Assessment Vital Signs Temp Pulse Pulse Resp BP BP BP 08/03/22 07:51 74 18 171/92 H 08/03/22 06:47 36.6 C 70 18 146/78 H 08/03/22 05:53 64 12 127/71 08/03/22 04:30 73 160/74 H 08/03/22 03:39 83 154/76 H 08/03/22 03:13 77 153/78 H 08/03/22 02:42 36.3 C L 77 18 153/78 H 08/03/22 00:23 74 08/02/22 23:45 36.7 C 70 20 182/84 H 08/02/22 23:55 36.7 C 79 16 158/84 H 08/02/22 22:15 74 14 122/68 08/02/22 20:24 73 18 08/02/22 20:15 78 18 152/84 H 08/02/22 20:15 08/02/22 20:16 36.8 C 100 H 18 133/70 Pulse Ox O2 Del Method 08/03/22 07:51 97 Room Air 08/03/22 06:47 97 Room Air 08/03/22 05:53 Room Air 08/03/22 04:30 08/03/22 03:39 08/03/22 03:13 08/03/22 02:42 96 Room Air 08/03/22 00:23 08/02/22 23:45 93 Room Air 08/02/22 23:55 93 Room Air 08/02/22 22:15 97 Room Air 08/02/22 20:24 95 Room Air 08/02/22 20:15 95 Room Air 08/02/22 20:15 98 Room Air 08/02/22 20:16 98 Room Air Cardiovascular + regular rate and + regular rhythm + S1 normal and + S2 normal; no murmur + femoral pulses present and + radial pulses present; no JVD and no carotid bruit no edema Respiratory no respiratory effort normal, no respiratory distress and no labored breathing no crackles, no rales, no rhonchi and no wheezes Pre-Sedation Airway Assessment Smoking Status: Never smoker Short, Thick Neck: No Thyromental Distance: > or= 3.5 Finger Breadths Oral Cavity: + WNL Mallampati Class: III ASA: ASA3 NPO Status Date of Last Intake of Fluids: 08/03/22 Time of Last Intake of Fluids: 04:00 Date of Last Intake of Solid Food: 08/02/22 Time of Last Intake of Solid Foods: 17:30 Procedure Planning Contraindications for Sedation: contraindicated Current Medications Reviewed: Yes Notes The planned sedation has been discussed with the patient. Informed Consent was obtained. I have identified the patient, determined the appropriateness of sedation and have assessed the patient immediately prior to the procedure. All medicine(s) and interventions are by my order.
--- NOTE | 2022-08-03 08:22 | Cardiology Consultation ---
Date of Consultation August 03, 2022 Assessment & Plan (1) Unstable angina: (2) CAD (coronary artery disease): (3) Abnormal stress echocardiogram: (4) Dyslipidemia: Plan Risk, benefits, alternatives to cardiac catheterization discussed. Patient willing to proceed. IV heparin placed on hold this a.m. Continue statin and low-dose aspirin as previously ordered. Further recommendations pending result of cardiac catheterization. History of Present Illness Reason for Consultation: chest pain, abnormal stress Requesting Physician: Dr. Hernandes Attending Physician: Ike Hernandes MD History of Present Illness 82-year-old patient recently evaluated the outpatient clinic due to exertional angina. Exercise stress echo performed with evidence of inferior lateral ischemia. Patient was scheduled for elective diagnostic cardiac catheterization today, however, last evening he developed resting chest pressure and heaviness similar to prior angina. He took 1 sublingual nitroglycerin with resolution of symptoms. He proceeded to the ER for further evaluation and treatment. His cardiac enzymes are not above reference range, however, did trend upward while in the ER. No ECG changes noted. Intravenous heparin was initiated overnight. He remained pain-free throughout the evening. Currently, he is feeling much better. Denies chest pain or shortness of breath. Sinus rhythm on telemetry. Blood pressure mildly elevated. No orthopnea, PND, or lower extremity edema. Allergies Allergy/AdvReac Type Severity Reaction Status Date / Time No Known Allergies Allergy Verified 08/02/22 20:47 Home Medications Medication Instructions Recorded Confirmed Type L.acidoph-L.rhamn-B.bifidum-B.long 1 tab PO TIDM 08/02/22 08/02/22 History 12.9 mg (2 billion cell) DR jose (Probiotic Acidophilus Rochelle) aspirin 81 mg tablet,delayed 81 mg PO DAILY 08/02/22 08/02/22 History release cholecalciferol (vitamin D3) 125 250 mcg PO DAILY 08/02/22 08/02/22 History mcg (5,000 unit) tablet (Vitamin D3) finasteride 5 mg tablet 5 mg PO QAM 08/02/22 08/02/22 History folic acid 400 mcg tablet 0.4 mg PO DAILY 08/02/22 08/02/22 History lecithin 1,200 mg capsule 1,200 mg PO DAILY 08/02/22 08/02/22 History magnesium oxide 400 mg PO DAILY 08/02/22 08/02/22 History nitroglycerin 0.4 mg sublingual 0.4 mg sublingual DIRECTED PRN 08/02/22 08/02/22 History tablet (Nitrostat) Chest Pain omega 2-fmq-pej-fish oil 1,200 mg 1 cap PO DAILY 08/02/22 08/02/22 History (144 mg-216 mg) capsule (Fish Oil) pravastatin 20 mg tablet 20 mg PO HS 08/02/22 08/02/22 History tamsulosin 0.4 mg capsule 0.4 mg PO HS 08/02/22 08/02/22 History vit C 250 mg-vit E 90 mg-zinc 40 1 tab PO DAILY 08/02/22 08/02/22 History mg-copper 1 au-psgvrs-vmzhpc capsule (PreserVision AREDS-2) Patient History Social History Smoking Status: Never smoker Hx Alcohol Use: No Hx Substance Use: No Preferred Language: Kyrgyz Communication Ability: Effective Channel Worker Required: No Beliefs That Will Affect Care: None Current Living Situation: Spouse Other Information That Helps Us Care for You: No Feels Safe at Home: Yes Safety Concerns: Feels Safe At This Time Assistive Devices: Glasses and Hearing Aid - Bilateral Review of Systems Review of Systems: All systems reviewed & are unremarkable except as noted in Subjective Physical Exam Constitutional: well nourished; no acute distress Respiratory: normal respiratory effort; no respiratory distress, no labored breathing and no retractions Auscultation: lungs clear to auscultation bilaterally; no crackles, no rales, no rhonchi and no wheezes Cardiovascular: Rate/Rhythm: regular rate and regular rhythm Heart Sounds: normal S1 and normal S2; no murmur Vessels: femoral pulses present and radial pulses present; no JVD and no carotid bruit Extremities: no edema Gastrointestinal (Abdomen): Inspection/Auscultation: abdomen normal to inspection and normal bowel sounds; abdomen not distended Percussion/Palpation: abdomen soft; abdomen nontender, no guarding and abdomen not rigid Neurologic: CN's II-XI intact bilaterally and moves all extremities; no focal motor deficits Psychiatric: A+Ox3, euthymic affect Results & Data ([place]) Vital Signs (Past 12 Hours) Vital Signs Temp Pulse Pulse Resp BP BP BP 08/03/22 07:51 74 18 171/92 H 08/03/22 06:47 36.6 C 70 18 146/78 H 08/03/22 05:53 64 12 127/71 08/03/22 04:30 73 160/74 H 08/03/22 03:39 83 154/76 H 08/03/22 03:13 77 153/78 H 08/03/22 02:42 36.3 C L 77 18 153/78 H 08/03/22 00:23 74 08/02/22 23:45 36.7 C 70 20 182/84 H 08/02/22 23:55 36.7 C 79 16 158/84 H 08/02/22 22:15 74 14 122/68 08/02/22 20:24 73 18 Pulse Ox O2 Del Method 08/03/22 07:51 97 Room Air 08/03/22 06:47 97 Room Air 08/03/22 05:53 Room Air 08/03/22 04:30 08/03/22 03:39 08/03/22 03:13 08/03/22 02:42 96 Room Air 08/03/22 00:23 08/02/22 23:45 93 Room Air 08/02/22 23:55 93 Room Air 08/02/22 22:15 97 Room Air 08/02/22 20:24 95 Room Air
--- NOTE | 2022-08-03 08:50 | Electrocardiogram Report ---
Test Reason : Blood Pressure : / mmHG Vent. Rate : 071 BPM Atrial Rate : 071 BPM P-R Int : 156 ms QRS Dur : 126 ms QT Int : 402 ms P-R-T Axes : 062 089 024 degrees QTc Int : 436 ms Sinus rhythm with Premature atrial complexes Right bundle branch block Abnormal ECG When compared with ECG of 18-FEB-2015 16:48, Right bundle branch block is now Present Premature atrial complexes now present Confirmed by Phoenix Kaiser ([id number]) on 08/03/2022 8:50:27 AM Referred By: REFERRED SELF Confirmed By:Phoenix Kaiser
--- NOTE | 2022-08-03 08:51 | Electrocardiogram Report ---
Test Reason : Blood Pressure : / mmHG Vent. Rate : 067 BPM Atrial Rate : 067 BPM P-R Int : 176 ms QRS Dur : 126 ms QT Int : 428 ms P-R-T Axes : 063 087 044 degrees QTc Int : 452 ms Normal sinus rhythm with Premature atrial complexes Right bundle branch block Abnormal ECG When compared with ECG of 02-AUG-2022 20:22, No significant change was found Confirmed by Phoenix Kaiser ([id number]) on 08/03/2022 8:50:51 AM Referred By: REFERRED SELF Confirmed By:Phoenix Kaiser
--- NOTE | 2022-08-03 08:59 | Post Anesthesia Assessment ---
Date of Service August 03, 2022 Post Sedation Assessment Vital Signs Temp Pulse Pulse Resp BP BP BP 08/03/22 07:51 74 18 171/92 H 08/03/22 06:47 36.6 C 70 18 146/78 H 08/03/22 05:53 64 12 127/71 08/03/22 04:30 73 160/74 H 08/03/22 03:39 83 154/76 H 08/03/22 03:13 77 153/78 H 08/03/22 02:42 36.3 C L 77 18 153/78 H 08/03/22 00:23 74 08/02/22 23:45 36.7 C 70 20 182/84 H 08/02/22 23:55 36.7 C 79 16 158/84 H 08/02/22 22:15 74 14 122/68 08/02/22 20:24 73 18 08/02/22 20:15 78 18 152/84 H 08/02/22 20:15 08/02/22 20:16 36.8 C 100 H 18 133/70 Pulse Ox O2 Del Method 08/03/22 07:51 97 Room Air 08/03/22 06:47 97 Room Air 08/03/22 05:53 Room Air 08/03/22 04:30 08/03/22 03:39 08/03/22 03:13 08/03/22 02:42 96 Room Air 08/03/22 00:23 08/02/22 23:45 93 Room Air 08/02/22 23:55 93 Room Air 08/02/22 22:15 97 Room Air 08/02/22 20:24 95 Room Air 08/02/22 20:15 95 Room Air 08/02/22 20:15 98 Room Air 08/02/22 20:16 98 Room Air Recovery Score Respiration: Deep Breath/Cough Circulation: +/-20% PreAnes Value Consciousness: Arouseable (by name) Oxygen Saturation: > 92% On Room Air Discharge Sedation Level of Care: Phase I Post Sedation Plan On clinical assessment, the patient appears to have tolerated the sedation without complications. Patient is recovering as anticipated. Patient will continue to be monitored by nursing and may be discharged when sedation discharge criteria are met per below protocol. Upon Completions of procedure up to 15 minutes continue every 5 minute vital signs and the P.A.R. score; then discharge to a Phase I or Fast Track to Phase II per the following guidelines: * Discharge Patient to appropriate Phase II area if PAR is 8 or greater or return to pre- procedure baseline. The post - procedure orders will be as directed. * If PAR score is less than 8 or not return to pre-procedure baseline then patient will follow Phase I monitoring till PAR is reached for Phase II. The Phase I may be done in procedure room or may call to secure a Phase I area. * If naloxone or flumazenil are used for reversal, hold in Phase I for continued monitoring from when last reversal dose was given for a minimum of 60 minutes or longer pending the nurse and/or physician discretion of patient condition before discharge to Phase II. Please call the Sedation Physician to re-evaluate and complete post-note for discharge to Phase II area. Do NOT discharge from procedure sedation or Phase 1 until post- sedation evaluation note is complete by procedure /sedation MD Sedation Discharge Instructions to be given to the patient at discharge to home.
[2022-08-03] MEDS ORDERED: FINASTERIDE 5 MG TAB PO SCH ×2 (09:00→21:00)
[2022-08-03] MEDS ORDERED: ATORVASTATIN 40 MG TAB PO SCH (09:00)
[2022-08-03] MEDS ORDERED: NITROGLYCERIN SL 0.4 MG/TAB TAB SL PRN (09:10)
--- NOTE | 2022-08-03 09:10 | Cardiac Catheterization ---
Cardiac Cath Procedure Full Procedure Date August 03, 2022 Pre-Procedure Diagnosis Pre-Procedure Diagnosis: Angina, Positive Stress Test and CAD AUC Score AUC Score: 8 Post-Procedure Diagnosis Post-Procedure Diagnosis: Severe CAD and Normal Intracardiac Pressures Procedure(s) Performed Procedure(s) Performed: Coronary Angiography and Left Heart Cath Woodyard Operator Shane Basurto DO Route Jumper(s) Abdirizak RTVeda Estimated Blood Loss Estimated Blood Loss: 5cc Medication(s) Medication(s): Fentanyl, Heparin, Lidocaine 1%, Nicardipine, Nitroglycerin and Versed Summary of Findings 90% mid RCA 99% proximal D1 (small vessel) Hemodynamics Rest Ao:: 94/52/70 Final Ao: 125/61/89 LV: 114/0/10 Recommendations Recommendations: PCI without planned CABG Radiation Exposure (mGy) 359 Contrast (mls) 40 Drains Drains: N/A Anesthesia Moderate sedation. [id number]. End 0857. Sedation monitor: Manuel PAGE I attest to the content of the Intraoperative Record and any orders documented therein. Any exceptions are noted below. 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 Presenting with exertional angina. Recent exe rcise stress echo demonstrating inferior lateral ischemia. He developed resting chest discomfort on the evening prior to procedure and was admitted for treatment of unstable angina. CAD Presenation: Unstable angina Anginal Classification: CCS IV Heart Failure: No Coronary Anatomy Dominant: Right Left Main (% Stenosis): Proximal (20%) LAD (% Stenosis): Proximal (30%) and Mid (diffuse 20-30%) D1 (% Stenosis): Proximal (99% extending to the ostium, small vessel (1.5 mm)) D2 (% Stenosis): Ostial (30%) and Proximal (30%) Circumflex (% Stenosis): Proximal (20%), Mid (20%) and Distal (Luminal irregularities, 20%) RCA (% Stenosis): Proximal (20%) and Mid (40% followed by 90%) R PDA (% Stenosis): Normal R PL1 (% Stenosis): Normal R PL2 (% Stenosis): Normal AM (% Stenosis): Normal Diagnostic Physicians Name: Shane Basurto DO Closure Device Percutaneous Entry Location: Radial Closure Device: Radial Band Recommendations: PCI without planned CABG Intraprocedure Events Significant Disection: No Perforation: No
[2022-08-03] MEDS ORDERED: CLOPIDOGREL BISULFATE 300 MG TAB ONE (09:13)
--- NOTE | 2022-08-03 09:53 | Cardiac Catheterization ---
[facility] Data: On Air Director Cardiac Status Clinical evaluation leading to the procedure CAD Presenation: Positive Stress Test and Unstable angina Anginal Classification: CCS IV Heart Failure: No Cardiogenic Shock within 24 Hours: No Cardiac Arrest within 24 Hours: No Stress Echocardiogram: Yes - Positive Diagnostic Physicians Name: Lauri Jackson MD, PhD Closure Device Percutaneous Entry Location: Radial Closure Device: Radial Band Recommendations: PCI without planned CABG PCI Indication: Unstable Angina Lesion Segment Name: Mid RCA Culprit Artery: Yes Stenosis Prior to Rx (%): 90 Chronic Total Occlusion: No Pre-Procedure FREDI Flow: 2 Previously Treated Lesion: No Lesion Complexity: Non-High/Non-C Lesion Length (mm): 8 mm Thrombus Present: No Bifurcation Lesion: No Guidewire Across Lesion: Yes Cardiac Cath Procedure Full Procedure Date August 03, 2022 Pre-Procedure Diagnosis Pre-Procedure Diagnosis: Angina, Positive Stress Test and CAD AUC Score AUC Score: 09 Post-Procedure Diagnosis Post-Procedure Diagnosis: Severe CAD and Normal Intracardiac Pressures Procedure(s) Performed Procedure(s) Performed: Drug Eluting Stent Professor Of Radiology Lauri Jackson MD, PhD Computer Help Desk Representative(s) Abdirizak RTR Estimated Blood Loss Estimated Blood Loss: 5cc Medication(s) Medication(s): Fentanyl, Heparin, Lidocaine 1%, Nicardipine, Nitroglycerin and Versed Summary of Findings Brief description of PCI: Patient had already been prepped and draped in a sterile fashion. There was a 6 Maori radial artery glide sheath in the right radial artery. Additional sedation with fentanyl and Versed were provided. The ACT was checked and additional IV heparin was provided as needed to maintain therapeutic ACT. A 6 Maori JR4 guide catheter was advanced over the J-wire and used to engage the right coronary artery. Through this, a BMW number so guidewire was advanced and positioned distally in the RCA. The severe mid RCA stenosis was predilated using a 2.5 x 12 mm PTCA balloon. The balloon was removed and a 2.5 x 15 mm Jigna drug-eluting stent was advanced and positioned across the lesion. It was deployed at 12 iza. Stent balloon was removed and structural steel erection supervisor angiography was performed. The proximal segment of the stent was then postdilated using a 3.0 x 8 mm noncompliant balloon up to 14 iza. The balloon was deflated and removed. Angiography was performed in orthogonal views. The guidewire was removed. The guide catheter was then removed. Radial artery sheath was removed and hemostasis obtained using the TR band. Patient was provided additional IV heparin after checking the ACT and 600 mg of p.o. Plavix was provided. He had already been provided with aspirin. Patient was then returned to the recovery area. He was hemodynamically stable and asymptomatic. This ended the case. PCI findings: Mid RCA stenosis 90% is reduced to 0% residual stenosis post PCI. No evidence of dissection or perforation post PCI FREDI-3 flow post PCI There is residual 40% stenosis earlier in the mid RCA. This was present prior to the PCI. Recommendations: 1. Dual antiplatelet therapy with aspirin and Plavix to complete 1 to 2 years t herapy. 2. Guideline directed medical therapy for secondary prevention as directed by Dr. Basurto. Hemodynamics Rest Ao:: 117/51 mmHg, mean 80 mmHg Final Ao: 129/58 mmHg, mean 89 mmHg LV: Not performed Recommendations Recommendations: PCI without planned CABG Radiation Exposure (mGy) 836 mGy, fluoroscopy time 9.5 minutes Contrast (mls) 80 mL Drains Drains: N/A Anesthesia 1 mg IV Versed, 25 mcg IV fentanyl interventional sedation 25 minutes Procedural Complication(s) None Disposition Recovery Room\PACU I attest to the content of the Intraoperative Record and any orders documented therein. Any exceptions are noted below. [facility] Card Cath Procedure Codes Moderate Sedation Procedure 1: Sedation/Anesthesia: 29394 Mod Sedation by a different physician ;Init15 Min Child Age 5&Up (15 min) Procedure 2: Sedation/Anesthesia: 36051 Mod Sedation by a different physician;Ea Additional 15 Minutes (additional 10 min) Stenting Procedure 1: Cardiovascular Stent Procedures: 02136 Perc transcatheter placement of intracoronary stent(s), with ang (RCA) PG Care Time/CCT Total # of Minutes Spent Total Time Spent with Patient: Total time spent is greater than 50% in coordination of care (as documented) at patient's floor/unit and/or counseling patient:
[2022-08-03] MEDS ORDERED: Nursing to Pharmacy Communication SCH (10:30)
[2022-08-03] MEDS: ATORVASTATIN 40 MG TAB PO SCH (10:37)
[2022-08-03] MEDS: ADVANCED PROBIOTIC 1250 MG CAPSULE PO SCH (10:37)
[2022-08-03] MEDS: MAGNESIUM OXIDE 400 MG TAB PO SCH (10:38)
[2022-08-03] MEDS: ASPIRIN 81 MG ECTAB PO SCH (10:40)
[2022-08-03] MEDS: FOLIC ACID 400 MCG TAB PO SCH (10:40)
[2022-08-03] MEDS: CHOLECALCIFEROL 5,000 UNITS 125 MCG TAB PO SCH (10:41)
[2022-08-03] MEDS: CEROVITE ADV FORMULA TAB PO SCH (10:42)
[2022-08-03] MEDS: TAMSULOSIN HCL 0.4 MG CAP PO SCH (11:27)
--- NOTE | 2022-08-03 13:01 | Hospitalist Progress Note ---
Date of Service August 03, 2022 Assessment & Plan (1) Unstable angina: Plan: Patient is an 82 yr male who presents with chest pain. Unstable angina Recent Abnormal stress test -S/P Cardiac Cath:Mid RCA stenosis 90% is reduced to 0% residual stenosis post PCI. No evidence of dissection or perforation post PCI. FREDI-3 flow post PCI. There is residual 40% stenosis earlier in the mid RCA. This was present prior to the PCI. -CXR:No acute process. -Normal lipid Panel -IV Heparin discontinued -Continue aspirin, Plavix, statin, Metoprolol -Appreciate Cardiology Input BPH Continue Flomax, finasteride. Hyperlipidemia: On statin CKD III Cr at baseline Monitor renal function DVT Px: IV heparin DCed SCDs for now Code Status Full code Admission and Anticipated Discharge Date Admission Date: August 02, 2022 Subjective Patient is seen and examined at bedside Had cardiac catheterization earlier today States feeling well this morning Denies any chest pain, shortness of, dizziness, nausea, abdominal pain Family at bedside No other complaints Review of Systems Review of Systems: All systems reviewed & are unremarkable except as noted in Subjective Physical Exam Physical Exam: Physical Exam: Vitals signs as noted above General Appearance:Moderately built and nourished, no apparent distress Head: normocephalic, Atraumatic Eyes: normal inspection, EOMI Neck: supple, Trachea midline Respiratory/Chest: Normal breath sounds, CTA, No accessory muscle use Cardiovascular: S1, S2, No murmur Abdomen/GI:Soft, Non tender, Bowel sounds present Extremities/Musculoskeletal:normal inspection, no edema Neurologic/Psych:AAOX3, grossly no focal neurological deficits Skin: normal color, warm Results & Data Results & Data ([facility]) Vital Signs (Past 12 Hours) Vital Signs Temp Pulse Pulse Resp BP BP BP 08/03/22 10:47 66 18 147/77 H 08/03/22 10:17 70 18 143/79 H 08/03/22 11:17 68 18 146/73 H 08/03/22 10:02 66 18 148/77 H 08/03/22 09:47 36.6 C 65 18 135/72 08/03/22 09:50 63 16 171/92 H 153/93 H 08/03/22 09:35 73 16 171/92 H 08/03/22 07:51 74 18 171/92 H 08/03/22 06:47 36.6 C 70 18 146/78 H 08/03/22 05:53 64 12 127/71 08/03/22 04:30 73 160/74 H 08/03/22 03:39 83 154/76 H 08/03/22 03:13 77 153/78 H 08/03/22 02:42 36.3 C L 77 18 153/78 H Pulse Ox O2 Del Method 08/03/22 10:47 96 Room Air 08/03/22 10:17 96 Room Air 08/03/22 11:17 98 Room Air 08/03/22 10:02 97 Room Air 08/03/22 09:47 98 Room Air 08/03/22 09:50 99 Room Air 08/03/22 09:35 95 Room Air 08/03/22 07:51 97 Room Air 08/03/22 06:47 97 Room Air 08/03/22 05:53 Room Air 08/03/22 04:30 08/03/22 03:39 08/03/22 03:13 08/03/22 02:42 96 Room Air Laboratory Results Short CBC 08/02/22 Range/Units 20:30 WBC 6.00 (4.8-10.8) K/ul Hgb 15.3 (14.0-18.0) g/dl Hct 45.7 (40.1-51.0) % Plt Count 197 (130-400) K/uL BMP 08/02/22 20:30 Sodium 139 Potassium 3.8 Chloride 102 Carbon Dioxide 34 H BUN 18 Creatinine 1.11 Glucose 131 H Calcium 9.2 Liver Function 08/02/22 Range/Units 20:30 Total Bilirubin 0.6 (0.2-1.0) mg/dl AST 21 (13-39) U/L ALT 18 (7-52) U/L Alkaline Phosphatase 95 (34-104) U/L Albumin 4.2 (3.4-5.0) gm/dl
[2022-08-03] MEDS ORDERED: TAMSULOSIN HCL 0.4 MG CAP PO SCH (21:00)
[2022-08-04] MEDS: METOPROLOL TARTRATE 25 MG TAB PO SCH (08:28)
[2022-08-04] MEDS: CEROVITE ADV FORMULA TAB PO SCH (08:28)
[2022-08-04] MEDS: ADVANCED PROBIOTIC 1250 MG CAPSULE PO SCH (08:28)
[2022-08-04] MEDS: CHOLECALCIFEROL 5,000 UNITS 125 MCG TAB PO SCH (08:28)
[2022-08-04] MEDS: TAMSULOSIN HCL 0.4 MG CAP PO SCH (08:28)
[2022-08-04] MEDS: MAGNESIUM OXIDE 400 MG TAB PO SCH (08:28)
[2022-08-04] MEDS: ASPIRIN 81 MG ECTAB PO SCH (08:28)
[2022-08-04] MEDS: ATORVASTATIN 40 MG TAB PO SCH (08:28)
[2022-08-04] MEDS: FOLIC ACID 400 MCG TAB PO SCH (08:29)
[2022-08-04] MEDS ORDERED: CLOPIDOGREL BISULFATE 75 MG TAB PO SCH (09:00)
--- NOTE | 2022-08-04 09:04 | Electrocardiogram Report ---
Test Reason : Blood Pressure : / mmHG Vent. Rate : 091 BPM Atrial Rate : 091 BPM P-R Int : 172 ms QRS Dur : 124 ms QT Int : 382 ms P-R-T Axes : 067 080 021 degrees QTc Int : 469 ms Normal sinus rhythm Left atrial enlargement Right bundle branch block Abnormal ECG When compared with ECG of 03-AUG-2022 07:13, Premature atrial complexes are no longer Present Confirmed by Phoenix Kaiser ([id number]) on 08/04/2022 9:03:49 AM Referred By: REFERRED SELF Confirmed By:Phoenix Kaiser
[2022-08-04 09:09] LABS: Hematocrit (blood only) 45.7 % (40.1-51.0); Hemoglobin 15.7 g/dl (14.0-18.0); Mean Corpuscular Hemoglobin 30.7 pg (25.0-34.0); Mean Corpuscular Hgb Conc 34.4 g/dL (32.0-36.0); Mean Corpuscular Volume 89.3 fL (80.0-100.0); Platelet Count 206 K/uL (130-400); RDW Coefficient of Variation 12.3 % (11.5-14.5); RDW Standard Deviation 40.7 fL (36.4-46.3); Red Blood Count 5.12 M/uL (4.63-6.08); White Blood Count 7.47 K/ul (4.8-10.8)
--- NOTE | 2022-08-04 09:19 | Cardiology Progress Note ---
Date of Service August 04, 2022 Assessment & Plan (1) Unstable angina: (2) CAD (coronary artery disease): (3) Abnormal stress echocardiogram: (4) Dyslipidemia: Plan OK for discharge from a general cardiology standpoint. Continue aspirin and clopidogrel (Plavix) without interruption, to complete 1 to 2 years therapy. Continue metoprolol tartrate 25 mg twice a day post discharge. Switch pravastatin 20 mg/day to rosuvastatin 10 mg/day Follow-up with PCP, Dr. Rashad Mustafa on 08/10/2022 at 10:40 AM Follow-up with Electronic Warfare Specialist, Dr. Shane Basurto, on September 04, 2022 at 11:00 AM. Admission and Anticipated Discharge Date Admission Date: August 02, 2022 Supervising Physician Co-Signing Physician Notes Patient seen and examined with Sj Rosado PA-C. Agree with findings and assessment as above. S/P PCI x2. DAPT x 12 months. Follow up with Dr. Basurto as scheduled. Subjective Mr. Jose Armando Agudelo is a very pleasant 82-year-old with history of coronary artery disease, remote plain old balloon angioplasty to the LAD in 1991. On July 24, 2022 Mr. Agudelo [address] to Dr. Basurto's office with exertional chest pain. Exercise stress testing on July 26, 2022 revealed inferior lateral ischemia. Resting echocardiography at the time of stress testing revealed preserved LV systolic function, EF 55-59%, normal RV size and function, and no significant valvular disease. Diagnostic cardiac catheterization was scheduled to be performed on August 03, 2022 at 7:00 AM. The evening prior to the procedure he developed resting chest discomfort that radiated to the left arm that was promptly aided by sublingual nitroglycerin and presented to the [facility] ER. He was admitted for treatment of unstable angina. Right radial artery cardiac catheterization on August 03, 2022 revealed right dominant coronary anatomy. The RCA had a 20% proximal stenosis and a 40% mid vessel stenosis that was followed by a 90% stenosis. The left main had a 20% proximal stenosis. The LAD had a 30% proximal stenosis and diffuse 20-30% mid vessel stenosis. The first diagonal branch was described as a small (1.5 mm) vessel with 99% stenosis extending to the ostium. The second diagonal branch had a 30% ostial stenosis and a 30% proximal stenosis. The LCX had a 20% proximal stenosis, 20$ mid vessel stenosis, and luminal irregularities in the distal vessel. Percutaneous intervention was performed by Dr. Lauri Jackson, receiving a 2.5 x 15 mm Jigna drug eluting stent with residual 40% stenosis earlier in the mid RCA that was present prior to the PCI. Recommendations included dual antiplatelet therapy with aspirin and Plavix to complete 1 to 2 years therapy. Patient evaluated post procedure. Chart, medications, and telemetry reviewed. Patient slept well. Patient denies chest pain, shortness of breath, palpitations, headache, lightheadedness, dizziness, near syncope, fevers, chills, melena, hematochezia, or hematuria. Review of the patient's continuous panel monitor reveals sinus throughout with heart rates in the 70's to 90's. LDL cholesterol was 71 mg/dL on 08/03/2022. Patient does not have prescription drug coverage. Review of Systems Review of Systems: Complete Review of Systems is as stated above, negative, or noncontributory. Physical Exam Physical Exam: General: A&Ox3. NAD. HENT: Normocephalic. Atraumatic. Eyes: PER. Conjunctiva pink, sclera clear. Neck: No carotid bruits. No JVD. Heart: RRR. No murmur. Lungs: Decreased. Clear to auscultation. Abdomen: +BS. Extremities: Right radial access site looks good. No clubbing. No cyanosis. No lower extremity edema. Limited neurological examination is without focal deficits. Pulses: radial=2/4, posterior tibial=2/4. Results & Data ([facility]) Vital Signs (Past 12 Hours) Vital Signs Temp Pulse Pulse Resp BP BP Pulse Ox 08/04/22 07:45 36.6 C 72 18 108/66 96 08/04/22 07:00 72 08/04/22 03:52 36.6 C 65 18 110/66 96 08/04/22 00:30 36.6 C 69 18 143/69 H 97 08/04/22 00:23 70 O2 Del Method 08/04/22 07:45 Room Air 08/04/22 07:00 08/04/22 03:52 Room Air 08/04/22 00:30 Room Air 08/04/22 00:23 Laboratory Results Cardiac Enzymes 08/03/22 08/03/22 Range/Units 10:45 16:38 Troponin I High Sens 11.2 18.7 D (0-20) pg/ml CBC 08/04/22 Range/Units 08:10 WBC 7.47 (4.8-10.8) K/ul RBC 5.12 (4.63-6.08) M/uL Hgb 15.7 (14.0-18.0) g/dl Hct 45.7 (40.1-51.0) % Plt Count 206 (130-400) K/uL Intake and Output 08/03/22 08/04/22 08/04/22 22:59 06:59 14:59 Intake Total 680 / 824.9 Output Total 200 / 1200 Balance 480 / -375.1 Intake: IV 0 / 144.9 Heparin Sodium/Dextrose 25,000 0 / 144.9 units In 500 ml @ 0 UNITS/HR IV .Q0M [facility] Rx#:[id number] Oral 680 / 680 Output: Urine 200 / 1200 Other: Other Intake Source sips # Unmeasured Voids 3 3
[2022-08-04 09:25] LABS: BUN Creatinine Ratio 15.4 (10-20); Calcium 9.2 mg/dl (8.5-10.1); Creatinine Clr Calc Pharmacy 47.6 ml/min; Est GFR (African American) 62.5 ml/min; Potassium 3.7 mmol/L (3.5-5.1)
--- NOTE | 2022-08-04 12:16 | Hospitalist Progress Note ---
Date of Service August 04, 2022 Assessment & Plan (1) Unstable angina: Plan: Patient is an 82 yr male who presents with chest pain. Unstable angina Recent Abnormal stress test -S/P Cardiac Cath:Mid RCA stenosis 90% is reduced to 0% residual stenosis post PCI. No evidence of dissection or perforation post PCI. FREDI-3 flow post PCI. There is residual 40% stenosis earlier in the mid RCA. This was present prior to the PCI. -CXR:No acute process. -Normal lipid Panel -IV Heparin discontinued -Continue aspirin, Plavix, statin, Metoprolol -Appreciate Cardiology Input Needs follow up with Cardiology Upon discharge BPH Continue Flomax, finasteride. Hyperlipidemia: On statin CKD III Cr at baseline Monitor renal function DVT Px: IV heparin DCed SCDs for now Code Status Full code Admission and Anticipated Discharge Date Admission Date: August 02, 2022 Subjective Patient is seen and examined at bedside States feeling well today No complaints Denies any chest pain, shortness of, dizziness, nausea, abdominal pain Plan to discharge home today Review of Systems Review of Systems: All systems reviewed & are unremarkable except as noted in Subjective Physical Exam Physical Exam: Physical Exam: Vitals signs as noted above General Appearance:Moderately built and nourished, no apparent distress Head: normocephalic, Atraumatic Eyes: normal inspection, EOMI Neck: supple, Trachea midline Respiratory/Chest: Normal breath sounds, CTA, No accessory muscle use Cardiovascular: S1, S2, No murmur Abdomen/GI:Soft, Non tender, Bowel sounds present Extremities/Musculoskeletal:normal inspection, no edema Neurologic/Psych:AAOX3, grossly no focal neurological deficits Skin: normal color, warm Results & Data Results & Data ([facility]) Vital Signs (Past 12 Hours) Vital Signs Temp Pulse Pulse Resp BP BP Pulse Ox 08/04/22 11:49 36.4 C L 64 20 123/66 99 08/04/22 07:45 36.6 C 72 18 108/66 96 08/04/22 07:00 72 08/04/22 03:52 36.6 C 65 18 110/66 96 08/04/22 00:30 36.6 C 69 18 143/69 H 97 08/04/22 00:23 70 O2 Del Method 08/04/22 11:49 Room Air 08/04/22 07:45 Room Air 08/04/22 07:00 08/04/22 03:52 Room Air 08/04/22 00:30 Room Air 08/04/22 00:23 Laboratory Results Short CBC 08/04/22 Range/Units 08:10 WBC 7.47 (4.8-10.8) K/ul Hgb 15.7 (14.0-18.0) g/dl Hct 45.7 (40.1-51.0) % Plt Count 206 (130-400) K/uL BMP 08/04/22 08:10 Sodium 138 Potassium 3.7 Chloride 102 Carbon Dioxide 29 BUN 19 Creatinine 1.23 Glucose 157 H Calcium 9.2
--- NOTE | 2022-08-04 12:33 | Discharge Summary ---
Date of Service August 04, 2022 Admission HPI Per Admitting Provider CHIEF COMPLAINT: Chest pain. HISTORY OF PRESENT ILLNESS: This is an 82-year-old male with past medical history significant for hyperlipidemia, history of CAD, chronic kidney disease stage III, history of degenerative disc disease, hearing loss, presents with chest pain. The patient says he is having chest pain with minimal exertion going on for the past six weeks. He has stress test done on 07/26/2022, which was positive and there is plan for elective cardiac catheterization tomorrow. The patient says today, in the evening he was sitting when he noticed chest pain in upper chest , mild to moderate in nature, going to his left arm, he took nitroglycerin, which really helped the pain. For this reason he came here. Currently, resting comfortably, hemodynamically stable. He also given aspirin. Denies any headache. No blurred visions, no earache, no runny nose, no sore throat, no cough, no difficulty swallowing. Appetite is okay. No shortness of breath, no sweating, no nausea, no abdominal pain. Normal bowel and bladder movements. No hematuria, no blood in stools or black stools. No swelling in the legs. Admission Exam Per Admitting Provider PHYSICAL EXAMINATION: GENERAL: The patient is of moderate build, not in acute distress. VITAL SIGNS: Temperature 36.8, pulse of 73, respiratory rate 18, blood pressure 133/70, oxygen 95% on room air. HEENT: Pupils equal, round and reactive to light. Oral mucosa moist. NECK: No JVD, no neck masses. CARDIOVASCULAR: S1 and S2 heard. Regular rate and rhythm. No murmur, no gallop. RESPIRATORY SYSTEM: Normal AP diameter. No accessory muscle use. No wheezing, no crackles. ABDOMEN: Soft, bowel sounds present, nontender, no distention. CENTRAL NERVOUS SYSTEM: Cranial nerves II-XII grossly intact, nonfocal. EXTREMITIES: No edema, no erythema. Principal Diagnosis Unstable angina Coronary artery disease Discharge Data Allergies Allergy/AdvReac Type Severity Reaction Status Date / Time No Known Allergies Allergy Verified 08/02/22 20:47 Consultations 08/02/22 21:27 ED Decision to Admit Stat 08/03/22 08:00 Consult Cardiology Routine 08/03/22 09:34 Consult Cardiac Rehabilitation Routine Procedures Performed Operation Date: 08/03/22 08:00 Actual Procedures s Cineradiography w/Routine Exam - Shane Basurto DO p Cath, Left with Cors and Vent - Shane Basurto DO s Drug Eluting Stent SGl Vessel - Shane Basurto DO Operation Date: 08/03/22 08:00 <No data on this case meets the specified criteria> Ordered Studies 08/03/22 07:48 CL Cath Imgs for PACS use only Routine Laboratory Results WBC 7.47 K/ul (4.8-10.8) 08/04/22 08:10 RBC 5.12 M/uL (4.63-6.08) 08/04/22 08:10 Hgb 15.7 g/dl (14.0-18.0) 08/04/22 08:10 Hct 45.7 % (40.1-51.0) 08/04/22 08:10 MCV 89.3 fL (80.0-100.0) 08/04/22 08:10 MCH 30.7 pg (25.0-34.0) 08/04/22 08:10 MCHC 34.4 g/dL (32.0-36.0) 08/04/22 08:10 RDW Std Deviation 40.7 fL (36.4-46.3) 08/04/22 08:10 RDW Coeff of Marilynn 12.3 % (11.5-14.5) 08/04/22 08:10 Plt Count 206 K/uL (130-400) 08/04/22 08:10 MPV 11.0 fL (9.4-12.4) 08/04/22 08:10 Immature Gran % (Auto) 0.2 % 08/02/22 20:30 Neut % (Auto) 59.7 % 08/02/22 20:30 Lymph % (Auto) 26.8 % 08/02/22 20:30 Rock % (Auto) 7.8 % 08/02/22 20:30 Eos % (Auto) 4.8 % 08/02/22 20:30 Baso % (Auto) 0.7 % 08/02/22 20:30 Neut # (Auto) 3.58 K/uL (1.4-6.5) 08/02/22 20:30 Lymph # (Auto) 1.61 K/uL (1.2-3.4) 08/02/22 20:30 Rock # (Auto) 0.47 K/uL (0.24-0.82) 08/02/22 20:30 Eos # (Auto) 0.29 K/uL (0-0.50) 08/02/22 20:30 Baso # (Auto) 0.04 K/uL (0-0.2) 08/02/22 20:30 Immature Gran # (Auto) 0.01 K/uL (0.00-0.02) 08/02/22 20:30 PT 10.6 Seconds (9.0-12.0) 08/02/22 20:30 INR 1.0 (0.9-1.1) 08/02/22 20:30 APTT 56.2 Seconds (21.0-31.0) H* 08/03/22 05:32 PTT Ratio 2.0 08/03/22 05:32 Activ Coag Time Kaolin 263 SECONDS (94-140) H 08/03/22 09:24 Sodium 138 mmol/L (136-145) 08/04/22 08:10 Potassium 3.7 mmol/L (3.5-5.1) 08/04/22 08:10 Chloride 102 mmol/L (98-107) 08/04/22 08:10 Carbon Dioxide 29 mmol/L (21-32) 08/04/22 08:10 Anion Gap 7 (3-11) 08/04/22 08:10 BUN 19 mg/dl (6-23) 08/04/22 08:10 Creatinine 1.23 mg/dl (0.6-1.4) 08/04/22 08:10 Est Cr Clr Drug Dosing 47.6 ml/min 08/04/22 08:10 Est GFR ( Amer) 62.5 ml/min 08/04/22 08:10 Est GFR (Non-Af Amer) 54.0 ml/min 08/04/22 08:10 BUN/Creatinine Ratio 15.4 (10-20) 08/04/22 08:10 Glucose 157 mg/dl (70-99(Fasting)) H 08/04/22 08:10 Calcium 9.2 mg/dl (8.5-10.1) 08/04/22 08:10 Total Bilirubin 0.6 mg/dl (0.2-1.0) 08/02/22 20:30 AST 21 U/L (13-39) 08/02/22 20:30 ALT 18 U/L (7-52) 08/02/22 20:30 Alkaline Phosphatase 95 U/L (34-104) 08/02/22 20:30 Troponin I High Sens 18.7 pg/ml (0-20) D 08/03/22 16:38 Total Protein 6.9 gm/dl (6.0-8.3) 08/02/22 20:30 Albumin 4.2 gm/dl (3.4-5.0) 08/02/22 20:30 Globulin 2.7 gm/dl (2.5-4.0) 08/02/22 20:30 Albumin/Globulin Ratio 1.6 (0.9-2) 08/02/22 20:30 Triglycerides 74 mg/dl (0-150) 08/03/22 05:32 Cholesterol 142 mg/dl (0-200) 08/03/22 05:32 LDL Cholesterol, Calc 71 mg/dl 08/03/22 05:32 VLDL Cholesterol, Calc 15 mg/dl (0-30) 08/03/22 05:32 HDL Cholesterol 56 mg/dl 08/03/22 05:32 Cholesterol/HDL Ratio 2.5 (0-5) 08/03/22 05:32 Lipase 32 U/L (11-82) 08/02/22 20:30 SARS-CoV-2, RNA, NAAT NEGATIVE (NEGATIVE) 08/02/22 Unknown Impressions Chest X-Ray 08/02/22 20:24 XR chest 1V portable HISTORY: Atypical chest pain. COMPARISON: None. FINDINGS: The lungs are clear. Cardiac silhouette is normal in size. No pleural effusions. No pneumothorax. IMPRESSION: No acute process. ACT 112: Negative or not required by law. Electronically signed by: Norman Floyd M.D. 08/02/2022 9:02 PM Hospital Course (1) Unstable angina: Patient is an 82 yr male who presents with chest pain. Unstable angina Recent Abnormal stress test -S/P Cardiac Cath:Mid RCA stenosis 90% is reduced to 0% residual stenosis post PCI. No evidence of dissection or perforation post PCI. FREDI-3 flow post PCI. There is residual 40% stenosis earlier in the mid RCA. This was present prior to the PCI. -CXR:No acute process. -Normal lipid Panel -IV Heparin discontinued -Continue aspirin, Plavix, statin, Metoprolol -Appreciate Cardiology Input Needs follow up with Cardiology Upon discharge BPH Continue Flomax, finasteride. Hyperlipidemia: On statin CKD III Cr at baseline Monitor renal function DVT Px: IV heparin DCed SCDs for now Code Status Full code Total Time Total Time Spent Total Time Spent (In Minutes): 45 minutes Discharge Plan Discharge Items Patient Disposition: Home - Self-Care Reason For Visit: CHEST PAIN Discharge Diagnosis: Unstable angina Coronary artery disease Activity: Per Instructions section Exercise/Sports: Wait until after follow-up appointment Non-emergency contact: Primary Care Provider and Water Supervisor Call non-emergency contact if: you have any medication questions, your symptoms worsen, your pain is concerning for you and you have a fever Follow-up/Referrals: Rashad Mustafa MD [Primary Care Provider] - (Date & Time 08/10/2022 10:40 AM Provider Rashad Mustafa MD Department [facility] ) Diet: Heart Healthy Add Attending Provider Instructions: Follow-up with your primary care physician on 08/10/2022 10:40 AM Follow-up with Water Supervisor, Dr. Shane Basurto, on September 04, 2022 at 11:00 AM. Seek immediate medical attention if your symptoms reoccur or worsen Please take all medications as instructed on discharge list below. Please call if you have any questions or problems. You can reach a [facility] hospitalist on duty at [facility] 24 hours a day by calling [phone] Home Care: * Take your medications exactly as directed. Don't skip doses. * Remember that recovery after a heart attack takes time. Plan to rest for at lease 4-8 weeks while you recover. Then return to normal activity when your doctor says it's okay. * Ask your doctor about joining a heart rehabilitation program. * Tell your doctor if you are feeling depressed. Feelings of sadness are common after a heart attack, but it is important that you speak to someone if you are feeling overwhelmed by these feelings. * If you are having chest pain, call 911 for an ambulance. Do NOT drive yourself to the hospital. * Ask your family members to learn CPR. * Learn to take your own blood pressure and pulse. Keep a record of your results. Ask your doctor when you should seek emergency medical attention. He or she will tell you which blood pressure reading is dangerous. Lifestyle Changes: * Maintain a healthy weight. Get help to lose any extra pounds. * Cut back on salt. * Limit canned, dried, packaged, and fast foods. * Don't add salt to your food. * Season foods with herbs instead of salt when you cook. * Break the smoking habit. Enroll in a stop-smoking program to improve your chances of success. * Limit fatty foods. * Ask your doctor about having your lipid levels checked regularly. * Build up your activity according to your doctor's recommendation. * Ask your doctor when it's okay to resume sexual activity. * Tell your doctor about any erectile dysfunction (ED) medication you are taking. Some ED medications are not safe if you take certain heart medications. * Try to manage stress. Follow Up: It is important for you to keep your follow up appointments with your medical provider. Pending Studies at Discharge: No Stand-Alone Forms: My [facility], Smoking Cessation Medications and DC Order Prescriptions: New clopidogrel 75 mg Tablet 75 mg PO QAM Qty: 30 1RF rosuvastatin 10 mg Tablet 10 mg PO QAM Qty: 30 1RF metoprolol tartrate 25 mg Tablet 25 mg PO BID Qty: 60 1RF Continued lecithin 1,200 mg Capsule 1,200 mg PO DAILY Rx Instructions: give with meal/snack folic acid 400 mcg Tablet 0.4 mg PO DAILY aspirin 81 mg Tablet,Delayed Release (Dr/Ec) 81 mg PO DAILY tamsulosin 0.4 mg capsule 0.4 mg PO HS nitroglycerin [Nitrostat] 0.4 mg Tablet, Sublingual 0.4 mg sublingual DIRECTED PRN (Reason: Chest Pain) finasteride 5 mg tablet 5 mg PO QAM cholecalciferol (vitamin D3) [Vitamin D3] 125 mcg (5,000 unit) Tablet 250 mcg PO DAILY Rx Instructions: TAKES DURING THE WINTER MONTHS omega 5-pas-fgz-fish oil [Fish Oil] 1,200 (144-216) mg Capsule 1 cap PO DAILY PreserVision AREDS-2 250-90-40-1 mg Capsule 1 tab PO DAILY Probiotic Acidophilus Biobeads 12.9 mg (2 billion cell) Tablet,Delayed Release (Dr/Ec) 1 tab PO TIDM magnesium oxide 400 mg magnesium Tablet 400 mg PO DAILY Discontinued pravastatin 20 mg tablet 20 mg PO HS Discharge Orders: Discharge Order (Routine); Ordered 08/04/22 Ordered By: Ike Hernandes Admission Data Admit Date/Time: 08/02/22 22:37 Attending Provider: Ike Hernandes Admit Provider: Justice Torres Primary Care Provider: Rashad Mustafa I. Other Providers: Justice Torres ; Shaen Basurto
--- NOTE | 2022-08-04 14:43 | Electrocardiogram Report ---
Test Reason : Blood Pressure : / mmHG Vent. Rate : 060 BPM Atrial Rate : 060 BPM P-R Int : 160 ms QRS Dur : 122 ms QT Int : 424 ms P-R-T Axes : 065 087 061 degrees QTc Int : 424 ms Sinus rhythm with marked sinus arrhythmia Right bundle branch block Borderline ECG When compared with ECG of 03-AUG-2022 09:39, Vent. rate has decreased BY 31 BPM Confirmed by Sg Vital ([id number]) on 08/04/2022 2:43:13 PM Referred By: REFERRED SELF Confirmed By:Sg Vital
[2022-08-05] MEDS ORDERED: ROSUVASTATIN CALCIUM 10 MG TAB PO SCH (09:00)
== END 2022-08-04 13:26 | disposition home or self-care (01) | DRG 247 ==
LOC: ED 20:14 → 2S 22:37